=== PATIENT | female | born 1965 | race Caucasian/White ===

== ENCOUNTER 2016-10-14 08:55 | Inpatient (IN) | payer BC ==
[~2016-10-14 08:55] MED LIST: MORPHINE SULFATE 15 MG TABLET.SA PO PRN; RINGER'S SOLUTION,LACTATED 1,000 ML IV PRN; ROPIVACAINE HCL/PF 100 MG, KETOROLAC TROMETHAMINE 30 MG, EPINEPHrine 0.2 MG in NORMAL S... IJ PRN; TRANEXAMIC ACID 1,000 MG in NORMAL SALINE 100 ML IV PRN; ceFAZolin SODIUM 1 GM VIAL IV PRN
--- NOTE | 2016-10-14 09:22 | PREOP NOTE ---
Preoperative Progress Note - Preoperative Changes Changes to Preop Condition?: No Changes
[2016-10-14] MEDS ORDERED: RINGER'S SOLUTION,LACTATED 1,000 ML IV ONE ×2 (12:40→13:20)
[2016-10-14] MEDS ORDERED: ACETAMINOPHEN 500 MG TABLET PO PRN (14:38)
[2016-10-14] MEDS ORDERED: ONDANSETRON HCL/PF 2 MG/ML VIAL IV PRN (14:38)
[2016-10-14] MEDS ORDERED: HYDROmorphone HCL 1 MG/ML DISP.SYRIN IV PRN (14:38)
[2016-10-14] MEDS ORDERED: PROMETHAZINE HCL 5 MG in DEXTROSE 5 % IN WATER 50 ML IV PRN ×2 (14:38)
[2016-10-14] MEDS ORDERED: MAGNESIUM HYDROXIDE 30 ML UDC PO PRN (14:38)
[2016-10-14] MEDS ORDERED: ZOLPIDEM TARTRATE 5 MG TABLET PO PRN (14:38)
[2016-10-14] MEDS ORDERED: diphenhydrAMINE HCL 50 MG/ML VIAL IV PRN (14:38)
[2016-10-14] MEDS ORDERED: MAG HYDROX/ALUMINUM HYD/SIMETH 30 ML UDC PO PRN (14:38)
--- NOTE | 2016-10-14 14:41 | OR ---
Operative Report - Dictated Report Narrative: Date: 10/14/2016 Preoperative diagnosis: Right Knee degenerative joint disease. Postoperative diagnosis: Right Knee degenerative joint disease. Procedure: Right Total knee arthroplasty. Surgeon: Pk Martinez M.D. Plumbing Drafter: Seamus Joseph PA-C Anesthesia: Spinal with regional block and local periarticular joint injection. Complications: None Specimens: Bone for disposal. Estimated blood loss: Minimal. Tourniquet time: 85 Minutes at 325 millimeters of mercury. Retained implants: Depuy Attune size 5 right lugged cemented posterior stabilized femoral component. Size 5 fixed-bearing cemented tibial platform. 5 by 5 millimeter posterior stabilized cross-linked tibial insert. 35 millimeter medialized patella button. Indications: Mrs. Holden is a 51-year-old female who has had long-standing right knee pain with a history of right knee surgery from soft tissue injury. This patient was followed in my clinic for period of time with significant complaints of right knee pain consistent with arthritic changes. She had failed conservative measures including, but not limited to, activity modification, passage of time, medications, and other conservative measures. Patient wished to proceed with surgical treatment. The risks, benefits, and alternatives were discussed in clinic. The risks of , blood clots, bleeding, infection, nerve/tendon blood vessel/ injury, malposition of components, intraoperative fracture, postoperative limited range of motion, persistent pain, failure of components, and need for additional procedures. Patient wished to proceed consent was obtained after answering all questions. Procedure: After marking the correct extremity on the floor, the patient was taken to the operating room. A timeout was performed. IV antibiotics consisting of Ancef were administered prior to the procedure. A regional followed by spinal anesthetic was induced by anesthesia, per my request, on the operative table with all bony prominences well-padded. Russell catheter was placed, and a bump was placed under the operative side buttock. SCDs and CHERELLE hose were utilized on the nonoperative leg. A well-padded tourniquet was applied to the operative thigh. The operative leg was then pre-scrubbed with alcoho,l prepped, and draped in a standard sterile fashion. After exsanguinating the extremity with an Esmarch bandage, the tourniquet was inflated. After marking out the anterior knee for standard incision centered over the patella, the skin was incised and dissected down to the joint retinaculum. The joint retinaculum was marked out as well as the horizontal axis of the patella, and a standard medial parapatellar arthrotomy was then made. The most proximal aspect of the quadriceps tendon and the patella tendon insertion were protected from release. A partial synovectomy was performed as well as a resection of the infrapatellar fat pad. The distal femoral fat pad proximal to the trochlea was also resected using cautery. The soft tissues were elevated off the medial aspect of the proximal tibia using a Alberto elevator ensuring that we did not transect the medial collateral ligament. Upon initial evaluation range of motion was approximately 5 degrees to 125 degrees of flexion. There were signs of advanced arthrosis in the medial and patellofemoral and to a lesser degree lateral joint spaces. There were large marginal osteophytes which were removed with a rongeur. The knee was hyperflexed and the patella was tucked laterally. Protecting the surrounding soft tissues with Homans, an entry drill was placed down the femoral canal using Whitesides line for guidance into the entry point. The intramedullary femoral alignment suraj was utilized in order to cut the distal femur in 5 degrees of valgus resecting 10 millimeters of bone. Next the distal femur was sized to a size 5. A posterior referencing guide was utilized to place the distal femoral cutting block in 3 degrees of external rotation. This was pinned into place. The rotation was confirmed both visually and based on anatomic landmarks. The 4 in 1 cutting jig of the appropriate size was utilized in order to make all bony cuts. The angle wing was used to ensure no notching. Retractors were utilized in order to protect surrounding soft tissues. This cut did not result in any excessive notching. We then cut the box centered over the distal femur. This allowed for resection of the anterior and posterior cruciate ligaments. I then turned my attention to the preparation of the tibia. Using an extra medullary tibial alignment suraj, 2 millimeters of bone was resected off the medial articular surface. This was made perpendicular to the mechanical axis of the joint with the alignment suraj centered over the ankle mortise. The alignment suraj was checked and was noted to be parallel to the mechanical axis, centered over the medial one third of the tibial tubercle, paralleling the anterior surface of the tibia. We then turned our attention to the remaining meniscus and soft tissues. These were removed while protecting the surrounding ligaments and soft tissues. The marginal osteophytes off the anterior, posterior, medial, lateral aspects of the femur and tibia were removed. The tibia was sized out to a size 5. Next the tibia was drilled and punched in an externally rotated position. Next the trial femur and a series of tibial inserts were utilized in order to allow for full extension and maximal flexion. It was found that a 5 millimeter insert gave the best range of motion and stability at multiple flexion points as well as at full extension there was less than 2 mm of gapping both medially and laterally. There is minimal anterior translation with the knee at 90 degrees of flexion and no signs of being able to dislocate the knee. The patella was then prepared. The initial thickness was 22 millimeters. This was reamed down to 12 millimeters parallel to the anterior surface of the patella. It was sized out to a size 35 medialized patella button. This was then drilled and trialed. Without any medial restraint the patella tracked appropriately and did not sublux or dislocate. At this point, it was felt these were the appropriate sized implants, and all trials were removed. The standard periarticular joint injection consisting of ropivacaine, Toradol, and epinephrine were injected into the periarticular joint tissues. The bony surfaces were thoroughly irrigated with a pulsatile- suction saline irrigation device. A bone plug from the prior resected anterior chamfer cut was placed into the drill hole at the distal femur. The bony surfaces were then dried in preparation for placement of the implants. The cement was vacuum mixed per the landscape management technician's instructions. The cement was placed on the dry bony surfaces and posterior aspect of the implants. The implants were impacted into place, removing all extruded cement. At this point anesthesia administered tranexamic acid per protocol intravenously. The knee was placed in extension with axial loading with the trial insert while the cement cured. Once the cement cured, all remaining extruded cement was removed. The knee was placed through a range of motion with the trial insert to ensure appropriate range of motion and stability. Final range of motion was approximately 0 to 125 degrees. The knee was again thoroughly irrigated with pulsatile saline lavage. The final polyethylene insert was then impacted into place ensuring no retained soft tissues. The remaining periarticular joint injection was injected. A medium Hemovac drain was placed exiting superior laterally. The knee was then placed over a triangle and the arthrotomy was closed with interrupted #1 Vicryl after thoroughly irrigating the joint. The deep and subcutaneous tissues were closed with interrupted 0 and 3-0 Vicryl respectively. Skin was closed with a running subcutaneous 3-0 Monocryl and Prineo Dermabond dressing. 4 x 4's, Sof-Rol, and a full leg Gordon wrap were applied. All sponge, needle, blade, and instrument counts were correct prior to closing the wounds. Postoperative condition: The patient was awoken and transferred to the postanesthesia care unit in stable condition. Plan is to be admitted to the inpatient medical/surgical floor postoperatively for 24 hours of IV antibiotics , physical therapy, occupational therapy, and medical comanagement. Patient will be weightbearing as tolerated with range of motion as tolerated. DVT prophylaxis will be with SCDs, CHERELLE hose, and pharmacological anticoagulation. Anticipated hospital stay is approximately 2-4 days.
[2016-10-14] MEDS: KETOROLAC TROMETHAMINE 30 MG/ML VIAL IV SCH ×2 (15:13→20:29)
[2016-10-14] MEDS: DEXTROSE 5%-LACTATED RINGERS 1,000 ML IV PRN (16:06)
[2016-10-14] MEDS: ceFAZolin SODIUM 1 GM in DEXTROSE 5 % IN WATER 100 ML IV SCH ×4 (16:06→21:55)
--- NOTE | 2016-10-14 16:24 | OR ---
Anesthesia Procedure Note - Anesthesia Procedure Note Date of Service: 10/14/16 Narrative: Vital Signs - Last Taken Temp 36.5 C 10/14/16 16:15 Pulse 58 L 10/14/16 16:15 Resp 16 10/14/16 16:15 BP 135/70 10/14/16 16:15 Pulse Ox 98 10/14/16 16:15 O2 Oxygen Delivery Method Room Air 10/14/16 16:20 ANESTHESIA PROCEDURE NOTE Date of Procedure: 10/15/2015 Time of procedure: 1235. Performed by: SANDY Fernandez CRNA, MSN Cyber Software Engineer: Lynette Dinh.. Preprocedure diagnosis: Right knee arthroplasty analgesia. Post procedure diagnosis: Same. Procedure: Right femoral nerve block. Indications: Post right knee arthroplasty pain relief. Findings: See below. Details of the procedure: The patient was brought to OR #4 and placed in supine position. The patient's right femoral area was prepped with chlorhexidine and using ultrasound guidance the right femoral artery and nerve was identified and lidocaine 1% was infiltrated to the skin of the intended injection site. Under ultrasound guidance the femoral nerve was approached until a thigh/leg response was identified on nerve stimulator. Once the stimulator response was effective at less than 0.5 mV and greater than 0.3 mV the femoral nerve was surrounded with 30 mL bupivacaine 0.5% with 1-200,000 epinephrine. Please see radiology/ ultrasound report for details and images of the procedure. EBL: 0 Fluids: N/A. Specimen: N/A. Post procedure condition: The patient tolerated the procedure well. No complications were noted. Thank you for this consultation. Jules Simons CRNA, ARNP, MSN
[2016-10-14] MEDS: SENNOSIDES/DOCUSATE SODIUM 1 TAB TABLET PO SCH (20:28)
[2016-10-14] MEDS: MORPHINE SULFATE 15 MG TABLET.SA PO SCH (20:29)
[2016-10-15] MEDS: DEXTROSE 5%-LACTATED RINGERS 1,000 ML IV PRN (01:07)
[2016-10-15] MEDS: ceFAZolin SODIUM 1 GM in DEXTROSE 5 % IN WATER 100 ML IV SCH ×2 (03:40)
[2016-10-15] MEDS: KETOROLAC TROMETHAMINE 30 MG/ML VIAL IV SCH ×4 (03:41→21:32)
[2016-10-15 05:47] LABS: Hematocrit 32.3 % (37.0-47.0); Hemoglobin 10.8 gm/dL (12.5-16.0); Mean Cell Volume 93.1 fl (78-100); Mean Corpuscular Hemoglobin 31.1 pg (27-31); Mean Corpuscular Hgb Conc 33.4 g/dl (32-36); Mean Platelet Volume 9.1 fl (6.0-9.5); Platelet Count 199 K/mm3 (150-450); Red Blood Count 3.47 M/mm3 (4.2-5.4); Red Cell Distribution Width 13.3 % (11.5-14.0); White Blood Count 7.7 K/mm3 (4.0-10.5)
[2016-10-15 05:55] LABS: Anion Gap 13.3 mmol/L (6.8-13.8); Calcium * 8.7 mg/dL (7.9-10.9); Carbon Dioxide 27.5 mmol/L (24-32.6); Estimated Creat Clear 54.4; Potassium 3.8 mmol/L (3.4-4.6)
--- NOTE | 2016-10-15 08:07 | PN ---
Subjective - Date and Time Seen Date: 10/15/16 Time: 08:04 Subjective Narrative: Subjective: Reports no concerns. Was able to get to the chair with therapy. Pain is well-controlled. Voiding without any complications. Tolerating by mouth intake. Denies any nausea or vomiting. Denies calf pain. Slept well. Physical exam: Alert and oriented to person, place and time Right lower Extremity: Palpable dorsalis pedis pulse. Sensation grossly intact to light touch. Dressings clean and dry. Able to flex and extend ankle and toes. No excessive drainage. Calf and thigh are soft and nontender. Assessment: Postop day 1 status post right total knee arthroplasty. Plan: Continue with physical and occupational therapy weightbearing as tolerated. Continue with anticoagulation. 24 hours postoperative prophylactic antibiotics. Pain control with goal to rely on oral medications. Continue bowel regimen. Will need 6 weeks with walker or assitive device to protect joint while ambulating during the recovery process. Discharge planning. Discontinue drain and Russell catheter. Repeat labs in a.m. Objective - Vitals Vitals: Last Vital Signs Temp 37.0 C 10/15/16 06:25 Pulse 61 10/15/16 06:25 Resp 18 10/15/16 06:25 BP 115/73 10/15/16 06:25 Pulse Ox 100 10/15/16 06:25 - Abnormal Lab Findings Abnormal Lab Findings: Abnormal Lab Results 10/15/16 10/15/16 Range/Units 05:43 05:43 RBC 3.47 L (4.2-5.4) M/mm3 Hgb 10.8 L (12.5-16.0) gm/dL Hct 32.3 L (37.0-47.0) % MCH 31.1 H (27-31) pg Random Glucose 127 H (70-110) mg/dL Cauti Physician Documentation - Urinary Catheter Management Urethral (Russell) Date of Insertion: 10/14/16 Time of Insertion: 13:00 Assessment/Plan - Problems/Diagnosis (1) Acute blood loss anemia Problem: Acute (2) Status post total right knee replacement Problem: Acute
[2016-10-15] MEDS: MORPHINE SULFATE 15 MG TABLET.SA PO SCH ×2 (09:37→21:31)
[2016-10-15] MEDS: oxyCODONE HCL/ACETAMINOPHEN 1 TAB TABLET PO PRN ×2 (11:49→19:16)
[2016-10-15] MEDS ORDERED: ENOXAPARIN SODIUM 40 MG/0.4 ML SYRG SC SCH (13:38)
[2016-10-15] MEDS: SENNOSIDES/DOCUSATE SODIUM 1 TAB TABLET PO SCH (21:31)
[2016-10-16] MEDS: KETOROLAC TROMETHAMINE 30 MG/ML VIAL IV SCH ×2 (03:32→09:57)
[2016-10-16 05:25] LABS: Hematocrit 31.9 % (37.0-47.0); Hemoglobin 10.3 gm/dL (12.5-16.0); Mean Cell Volume 94.9 fl (78-100); Mean Corpuscular Hemoglobin 30.7 pg (27-31); Mean Corpuscular Hgb Conc 32.3 g/dl (32-36); Mean Platelet Volume 10.1 fl (6.0-9.5); Platelet Count 218 K/mm3 (150-450); Red Blood Count 3.36 M/mm3 (4.2-5.4); Red Cell Distribution Width 13.2 % (11.5-14.0); White Blood Count 8.3 K/mm3 (4.0-10.5)
[2016-10-16 05:27] LABS: BUN/Creatinine Ratio 14.4 (9.0-21.6); Calcium * 8.7 mg/dL (7.9-10.9); Carbon Dioxide 29.8 mmol/L (24-32.6); Estimated Creat Clear 52.3; Potassium 3.8 mmol/L (3.4-4.6)
[2016-10-16] MEDS: oxyCODONE HCL/ACETAMINOPHEN 1 TAB TABLET PO PRN (06:29)
[2016-10-16 07:14] VITALS: BP 108/60
--- NOTE | 2016-10-16 08:51 | DS ---
(1) Acute blood loss anemia Problem: Acute (2) Status post total right knee replacement Problem: Acute Description of Stay: Mrs. Holden was admitted to the floor after undergoing right total knee arthroplasty. Tolerated this well. Was admitted to the floor postoperatively for 24 hours of IV antibiotics, pain control, medical comanagement, and occupational and physical therapy. OT and PT were consulted to assist with activities of daily living and ambulation. Was made weightbearing as tolerated with range of motion as tolerated. Pain was initially controlled with IV regimen. This was transitioned to oral once tolerating a by mouth intake. Was resumed on home diet and medications. Had a Russell catheter inserted and the operating room which was discontinued on postoperative day 1. A drain was placed intraoperatively into the knee which was discontinued on postoperative day 1. Lovenox SCD and CHERELLE hose were utilized for DVT prophylaxis. Vital signs remained stable to the hospital course. Serial labs were obtained which showed a final hemoglobin of 10.3 grams. BMP was reviewed and was stable. Physical examination throughout the hospital course showed an extremity that had sensation that was intact to light touch, palpable pulses, a benign wound, motor intact to the toes, ankle, and knee. Knee range of motion was approximately 5 degrees to 60 degrees. Once an oral pain regimen was tolerated and physical therapy goals were met, it was felt that they were stable for discharge to home. Instructions: Continue with weightbearing as tolerated and range of motion as tolerated. It is okay to shower and get the wound wet as long as there is no drainage from the wound. Do not bathe or soak the wound. If there is any drainage from the wound keep the wound clean and dry and cover with dry gauze and tape. Change every 2-3 days as needed if there is any drainage. Cover wound while showering if there is any drainage. Continue with physical therapy. Resume home diet. Report any fever over 101.5 Fahrenheit, uncontrolled pain, increased drainage, foul odor of drainage, new or increased calf pain or shortness of breath, or any other significant complaints. A 325mg dialy aspirin will be started after finishing anticoagulation if not allergic. Continue with CHERELLE hose on the operative extremity until instructed otherwise. No driving until instructed otherwise. Follow up in approximately 10-14 days. Procedures Performed: see notes below List Procedures: Right total knee arthroplasty Discharge Disposition: Home self care Disposition: Home self-care Condition: Good Discharge Activity: Activity as tolerated, Weight bearing Discharge Diet: General/regular food Skilled Nursing Therapy: Physicial Therapy Referrals: Jodi Robbins DO [Primary Care Provider] - Additional Patient Instructions (free text): Follow up with Physical Therapy at [facility] Outpatient therapy on Wednesday at 10:00am. Follow up in the Orthopedic office with Dr. Martinez on 10/29/16@1:00pm. Prescriptions (Any new or edited meds): Enoxaparin Sodium [Lovenox] 40 mg SC Q24H #7 disp.syrin Morphine Sulfate [Ms Contin] 15 mg PO Q12H #20 tablet.sa oxyCODONE HCL/ACETAMINOPHEN [Percocet 5 MG/325 MG] 2 tab PO Q4H PRN #90 tablet PRN Reason: Moderate Pain Complete Home Medications List: Complete Home Medication List: Enoxaparin Sodium [Lovenox] 40 mg SC Q24H #7 disp.syrin 10/16/16 Morphine Sulfate [Ms Contin] 15 mg PO Q12H #20 tablet.sa 10/16/16 Sennosides/Docusate Sodium [Senokot-S] 2 tab PO HS tablet 10/16/16 oxyCODONE HCL/ACETAMINOPHEN [Percocet 5 MG/325 MG] 2 tab PO Q4H PRN #90 tablet 10/16/16 Amb Orders for Discharge: PT Evaluation and Treatment Facility: [facility], Location: Rehabilitation Services
[2016-10-16] MEDS: MORPHINE SULFATE 15 MG TABLET.SA PO SCH (09:55)
== END 2016-10-16 11:25 | disposition home or self-care (01) | DRG 470 ==
LOC: MS 08:55
PROVIDERS: ADMIT Orthopaedic Surgery; ATTEND Orthopaedic Surgery
PROC: 0SRC0J9 Replacement of Right Knee Joint with Synthetic Substitute, Cemented, Open Approach (ICD-10-PCS; principal; 2016-10-14 14:00)
DX: M17.11 Unilateral primary osteoarthritis, right knee (principal); D62 Acute posthemorrhagic anemia; J30.2 Other seasonal allergic rhinitis

== ENCOUNTER 2017-01-11 13:56 | Day surgery (SDC) | payer BC ==
--- NOTE | 2017-01-11 14:22 | OR ---
Anesthesia Pre Procedure Eval Date of Service: 01/11/17 Pre Procedure Evaluation: Anesthesia Pre Procedure Evaluation DATE: 01/11/2017 TIME: 1420 INDICATIONS: Disc bulge L4 5 with spinal stenosis, low back and bilateral radicular pain, right worse than left PAST MEDICAL HISTORY: Is positive has had previous issues with the neck for which she received epidural , providing good relief. She had a right knee replacement 3 months ago and ever since that time has suffered with low back and bilateral radicular pain. Of note the radicular pain is greater in the right than left, its origin in the hips, but extending from the mid tibia distally. The pain has Been slowed since the time of her initial experience that has never went away and is a constant aggravating condition sometimes interfering with her activities of daily living. History of GERD: No History of smoking: No History of sleep apnea: Treated for GEORGE: No EXAM: Heart 1 S2 regular; lungs there are bilaterally ASSESSMENT OF MEDICAL STATUS: Appropriate candidate for BESSIE. PLANNED PROCEDURE: Lumbar epidural steroid injection. Home Medications: HOME MEDICATIONS Aspirin [Aspirin Enteric Coated] 325 mg PO DAILY 01/08/17 [Last Taken Unknown] Celecoxib [Celebrex] 100 mg PO BID PRN 01/08/17 [Last Taken Unknown] Ibuprofen [Motrin] 400 mg PO Q6H PRN 01/08/17 [Last Taken Unknown]
[2017-01-11] MEDS ORDERED: DEXAMETHASONE SOD PHOSPHATE 10 MG/ML VIAL IJ ONE (14:37)
[2017-01-11] MEDS ORDERED: LIDOCAINE HCL/PF 5 ML VIAL IJ ONE (14:38)
[2017-01-11] MEDS ORDERED: IOPAMIDOL 20 ML VIAL IJ ONE (14:38)
--- NOTE | 2017-01-11 14:57 | OR ---
Anesthesia Procedure Note - Anesthesia Procedure Note Date of Service: 01/11/17 Narrative: Vital Signs - Last Taken Temp 36.5 C 01/11/17 14:00 Pulse 73 01/11/17 14:40 Resp 18 01/11/17 14:40 BP 148/100 01/11/17 14:40 Pulse Ox 100 01/11/17 14:40 O2 Oxygen Delivery Method Room Air 01/11/17 14:49 ANESTHESIA PROCEDURE NOTE Date of Procedure: 01/11/2017 Time of procedure: 1435. Performed by: Jules Simons CRNA, NECKTIE MAKER, MSN Billing Auditor: Nabila Alejandra RN. Preprocedure diagnosis: Disc bulge, spinal stenosis, low back and bilateral radicular pain. Post procedure diagnosis: Same. Procedure: Epidural Steroid Injection L3 4. Indications: Low back and bilateral radicular pain. Findings: See below. Details of the procedure: After the MRI report and films were reviewed, the patient was interviewed where risks and the procedure were explained. The patient was then brought to over #3 and was placed in the prone position. The back was prepped with DuraPrep and draped in a sterile fashion. The lumbar area was identified under fluoroscopy and the L3-4 space was localized with 1% lidocaine solution. The patient's spine image appeared a bit twisted, therefore a angle from left to right with the epidural needle was used. The epidural space was identified using loss of resistance technique using a #20- gauge Touhy needle. 1 mL of Isovue was injected while the C-arm was positioned in the lateral orientation. The C-arm was then readjusted to an AP view and Isovue 200 1 milliliters was injected demonstrating a spread at the affected area. Dexamethasone 10mg and lidocaine 1% 5 mL was injected, eliciting a transient right pressure paresthesia. Stylette was replaced and the epidural needle removed. A Band-Aid was then applied to the injection site, patient was placed in a supine position for 5 minutes then returned to ASU with good relief of pain, from a 5or6 to 0/10. EBL: None. Energy: 12.1 Seconds, 2.01 mGy Fluids: N/A. Specimen: N/A. Post procedure condition: The patient tolerated the procedure well. No complications were noted. Thank you for this consultation. Jules Simons CRNA, MSN, NECKTIE MAKER
[2017-01-11 15:27] VITALS: BP 135/86
== END 2017-01-11 13:57 | disposition home or self-care (01) ==
LOC: AMB 13:56
PROVIDERS: ATTEND Orthopaedic Surgery
PROC: 3E0R33Z Introduction of Anti-inflammatory into Spinal Canal, Percutaneous Approach (ICD-10-PCS; 2017-01-11)
PROC: 3E0R3BZ Introduction of Anesthetic Agent into Spinal Canal, Percutaneous Approach (ICD-10-PCS; principal; 2017-01-11 08:00)
DX: M51.26 Other intervertebral disc displacement, lumbar region (principal); M48.061 Spinal stenosis, lumbar region without neurogenic claudication; Z68.26 Body mass index [BMI] 26.0-26.9, adult